=== PATIENT | male | born 2000 | race American Indian/Alaskan Native ===

== ENCOUNTER 2020-09-01 11:33 | Emergency (ER) | payer SELFPAY ==
[2020-09-01] MEDS ORDERED: SODIUM CHLORIDE 0.9% 1000 ML 1,000 ML IV ONE (11:47)
[2020-09-01] MEDS ORDERED: ONDANSETRON 4 MG/2 ML INJ IV ONE (11:47)
[2020-09-01 12:14] LABS: Basophils # (Auto) 0.1 K/mm3 (0.0-0.1); Basophils % (Auto) 0.9 % (0.0-1.8); Eosinophils # (Auto) 0.1 K/mm3 (0.0-0.4); Eosinophils % (Auto) 0.7 % (0.0-4.3); Hematocrit 45.2 % (35.5-45.6); Hemoglobin 15.6 gm/dl (11.8-15.2); Lymphocytes # (Auto) 0.9 K/mm3 (1.2-5.4); Lymphocytes % (Auto) 6.8 % (13.4-35.0); Mean Corpuscular HGB Conc 35 % (32-34); Mean Corpuscular Volume 87 fl (84-94); Monocytes # (Auto) 0.6 K/mm3 (0.0-0.8); Monocytes % (Auto) 4.4 % (0.0-7.3); Platelet Count 248 K/mm3 (140-440); Red Blood Count 5.23 M/mm3 (3.65-5.03); Red Cell Distribution Width 13.9 % (13.2-15.2)
--- NOTE | 2020-09-01 12:21 | Emergency Department Report ---
ED General Adult HPI - General Chief complaint: Nausea/Vomiting/Diarrhea Stated complaint: NAUSEA/VOMTING Time Seen by Provider: 09/01/20 11:43 Source: patient Mode of arrival: Ambulatory Limitations: No Limitations - History of Present Illness Initial comments: This is a 20-year-old man who began to have nausea vomiting and diarrhea at about 730 this a.m. He states he feels thirsty now but has not been having polydipsia polyphagia and polyuria. He is morbidly obese. He does admit to smoking marijuana. He denies fever or chills. He states the emesis yellow in color and the stool did not look at all bloody or black. He does not have any regular or intermittent GI symptoms. Patient states he is on no medicines and has no past medical history or surgical history. -: Gradual, hour(s) (Does not complain of any abdominal pain at the time of my encounter.) - Related Data Allergies Allergy/AdvReac Type Severity Reaction Status Date / Time No Known Allergies Allergy Unverified 09/01/20 11:37 ED Review of Systems ROS: Stated complaint: NAUSEA/VOMTING Other details as noted in HPI Constitutional: denies: chills, fever Eyes: denies: eye pain, vision change ENT: denies: ear pain, throat pain Respiratory: denies: cough, shortness of breath Cardiovascular: denies: chest pain, palpitations Endocrine: increased thirst. denies: increased hunger Gastrointestinal: nausea, vomiting, diarrhea. denies: abdominal pain Genitourinary: denies: urgency, dysuria Musculoskeletal: denies: back pain, joint swelling, arthralgia Skin: denies: rash, lesions Neurological: denies: headache, weakness, paresthesias Psychiatric: denies: anxiety, depression Hematological/Lymphatic: denies: easy bleeding, easy bruising ED Past Medical Hx - Past Medical History Previous Medical History?: No Additional medical history: HEART MURMUR - Surgical History Past Surgical History?: No - Social History Substance Use Type: Marijuana ED Physical Exam - General Limitations: Physical Limitation General appearance: alert, in no apparent distress, obese - Head Head exam: Present: atraumatic, normocephalic - Eye Eye exam: Present: normal appearance. Absent: scleral icterus - ENT ENT exam: Present: mucous membranes dry - Neck Neck exam: Present: normal inspection - Respiratory Respiratory exam: Present: normal lung sounds bilaterally. Absent: respiratory distress - Cardiovascular Cardiovascular Exam: Present: regular rate, normal rhythm. Absent: systolic murmur, diastolic murmur, rubs, gallop - GI/Abdominal GI/Abdominal exam: Present: soft, normal bowel sounds. Absent: distended, ten derness, guarding, rebound, rigid - Rectal Rectal exam: Present: deferred - Extremities Exam Extremities exam: Present: normal inspection - Back Exam Back exam: Present: normal inspection - Neurological Exam Neurological exam: Present: alert, oriented X3, CN II-XII intact. Absent: motor sensory deficit - Psychiatric Psychiatric exam: Present: normal affect, normal mood - Skin Skin exam: Present: warm, dry, intact, normal color. Absent: rash ED Course Vital Signs 09/01/20 09/01/20 11:41 13:33 Temperature 97.7 F Pulse Rate 73 72 Respiratory 20 16 Rate Blood Pressure 153/84 Blood Pressure 145/72 [Left] O2 Sat by Pulse 98 99 Oximetry - Reevaluation(s) Reevaluation #1: Patient better hydrated after the liter of the fluid. He feels fine now and is asymptomatic/ready to go home. 09/01/20 13:28 ED Medical Decision Making - Lab Data Result diagrams: 09/01/20 11:57 09/01/20 11:57 Laboratory Results - last 24 hr 09/01/20 09/01/20 09/01/20 11:56 11:57 11:57 WBC 13.6 H RBC 5.23 H Hgb 15.6 H Hct 45.2 MCV 87 MCH 30 MCHC 35 H RDW 13.9 Plt Count 248 Lymph % (Auto) 6.8 L [place] % (Auto) 4.4 Eos % (Auto) 0.7 Baso % (Auto) 0.9 Lymph # (Auto) 0.9 L [place] # (Auto) 0.6 Eos # (Auto) 0.1 Baso # (Auto) 0.1 Seg Neutrophils % 87.2 H Seg Neutrophils # 11.8 H Sodium 136 L Potassium 4.1 Chloride 101.9 Carbon Dioxide 25 Anion Gap 13 BUN 13 Creatinine 1.0 Estimated GFR > 60 BUN/Creatinine Ratio 13 Glucose 120 H POC Glucose 108 H Calcium 10.1 Magnesium 1.80 Total Bilirubin 0.60 Direct Bilirubin < 0.2 Indirect Bilirubin 0.4 AST 47 H ALT 72 H Alkaline Phosphatase 134 H Total Creatine Kinase 301 H CK-MB (CK-2) 2.3 CK-MB (CK-2) Rel Index 0.7 Total Protein 8.3 H Albumin 4.5 Albumin/Globulin Ratio 1.2 Lipase 105 H Critical care attestation.: If time is entered above; I have spent that time in minutes in the direct care of this critically ill patient, excluding procedure time. ED Disposition Clinical Impression: Nausea vomiting and diarrhea Disposition: TO HOME OR SELFCARE Is pt being admited?: No Does the pt Need Aspirin: No Condition: Stable Instructions: Diarrhea, Adult, Nausea and Vomiting, Adult, [id number] Additional Instructions: Light diet advance as tolerated. Rx if needed for nausea. Follow-up with primary care provider. Your blood pressure was a bit high today. This will require close follow-up. In addition you should check it yourself pharmacy daily for the next 2 days. If it is elevated, certainly seek medical attention. Referrals: PRIMARY CARE [Primary Care Provider] - 3-5 Days [facility] [Provider Group] - 3-5 Days Time of Disposition: 13:38
[2020-09-01 12:32] LABS: Creatine Kinase MB 2.3 ng/mL (0.0-4.0)
[2020-09-01 12:33] LABS: Alanine Aminotransferase 72 units/L (7-56); Albumin 4.5 g/dL (3.9-5); BUN/Creatinine Ratio 13; Blood Urea Nitrogen 13 mg/dL (9-20); Calcium 10.1 mg/dL (8.4-10.2); Hemolysis Index 11
[2020-09-01 12:40] LABS: Bilirubin,Direct < 0.2 mg/dL (0-0.2)
[2020-09-01 13:33] VITALS: BP 145/72
== END 2020-09-01 13:55 | disposition home or self-care (01) ==
LOC: ED 11:33
DX: R11.2 Nausea with vomiting, unspecified (principal); R19.7 Diarrhea, unspecified; F12.90 Cannabis use, unspecified, uncomplicated
CPT/HCPCS: 36415; 80048; 80076; 82550; 82553; 82962; 83690; 83735; 85025; 96361; 96374; 99283; J2405; J7030